=== PATIENT | male | born 1995 | race Caucasian/White ===

== ENCOUNTER 2018-03-15 19:40 | Emergency (ER) | payer SELFPAY ==
[2018-03-15 19:47] VITALS: BP 118/90
--- NOTE | 2018-03-15 20:06 | EDPHY ---
H & P Time Seen by Provider: 03/15/18 20:04 HPI/ROS: CHIEF COMPLAINT: Discoloration of toes x1.5 years HISTORY OF PRESENT ILLNESS: 22-year-old male in the ER via private vehicle complaining of intermittent discoloration of his toes for the past 1 and half years which occurs exclusively in the mornings when he wakes up. States that his toes feel hot and appear red and appear to be swollen. This resolved spontaneously. He does not experience similar symptoms in his upper extremities or fingers. He does not experience similar with transition from extremes of temperature. He is currently asymptomatic. He has not been experiencing: Chest pain, dyspnea, REVIEW OF SYSTEMS: A ten point review of systems was performed and is negative with the exception of the items mentioned in the HPI PAST MEDICAL & SURGICAL HISTORY: No pertinent medical or surgical history SOCIAL HISTORY: Student PHYSICAL EXAM (Prior to examination, patient consented to physical exam, hands were washed and my usual and customary physical exam procedures followed) 1) GENERAL: Well-developed, well-nourished, alert and oriented. Appears to be in no acute distress. 2) HEAD: Normocephalic, atraumatic 3) HEENT: Pupils equal, round, reactive to light bilaterally. Sclera anicteric. 4) NECK: Full range of motion, no meningeal signs. 5) LUNGS: Clear auscultation bilaterally, no wheezes, no rhonchi, no retractions. 6) HEART: Regular rate and rhythm, no murmur, no heave, no gallop. 7) ABDOMEN: No guarding, no rebound, no focal tenderness, negative McBurney's, negative Pierre's, negative Rovsing's, negative peritoneal sign, 8) MUSCULOSKELETAL: Moving all extremities, no focal areas of tenderness, no obvious trauma. No peripheral edema or discoloration. Specifically, the toes are examined they have normal pink coloration with brisk capillary refill less than 2 sec, brisk good dorsalis pedis and posterior tibialis pulses. Soft compartments throughout. Negative Ana Paula, no palpable cord, normal temperature Upper extremities have similar normal coloration and temperature. 9) BACK: No CVA tenderness, no midline vertebral tenderness, no fluctuance, no step-off, no obvious trauma, no visual or palpable abnormality. 10) SKIN: No rash, no petechiae. 11) Psychiatric: Patient is oriented X 3, there is no agitation. DIFFERENTIAL DIAGNOSIS: In no particular include but limited to DVT, arterial occlusion, limb ischemia, Raynaud's Smoking Status: Current some day smoker Constitutional: Initial Vital Signs Temperature (C) 36.6 C 03/15/18 19:43 Heart Rate 82 03/15/18 19:43 Respiratory Rate 18 03/15/18 19:43 Blood Pressure 118/90 H 03/15/18 19:43 O2 Sat (%) 96 03/15/18 19:43 O2 Delivery Mode Room Air Allergies/Adverse Reactions: No Known Allergies Allergy (Unverified 03/15/18 19:43) Home Medications: Medication Instructions Recorded Adderall 10 MG (*) 03/15/18 MDM/Departure - [facility] ED Course/Re-evaluation: Patient I discussed possible etiologies for his 1.5 years of intermittent toe discoloration. This time he has no signs of limb ischemia. Doubt compartment syndrome, doubt DVT, doubt rhabdomyolysis. We discussed possible etiology for symptoms. At this time I do not identify emergent condition requiring intervention or diagnostic studies. Did however recommend he follow up at [facility] as he may necessitate outpatient evaluation. He is agreeable with this plan. Usual and customary discharge precautions and instructions provided. I saw this patient independently based on established practice protocols. Care of patient under supervision of secondary supervising physician Dr Burton . - Depart Disposition: Home, Routine, Self-Care Clinical Impression: Discoloration of skin of toe Condition: Good Instructions: Swollen Joint (ED) Additional Instructions: Return to the emergency department if you develop leg pain, swelling, discoloration that does not resolve, or any other symptoms that concern you. Referrals: [facility],. [Clinic] - 2-3 days, call for appt.
== END 2018-03-15 20:13 | disposition home or self-care (01) ==
DX: L81.9 Disorder of pigmentation, unspecified (principal); F17.210 Nicotine dependence, cigarettes, uncomplicated